=== PATIENT | female | born 1995 | race Caucasian/White ===

== ENCOUNTER 2020-07-01 12:35 | Inpatient (IN) ==
[2020-07-01] MEDS ORDERED: Naloxone 0.4 MG/ML INJ IVP PRN (13:12)
[2020-07-01] MEDS ORDERED: miSOPROStoL 25 MCG TABLET PO PRN (13:12)
[2020-07-01] MEDS ORDERED: Metoclopramide 10 MG/2 ML VIAL IVP PRN (13:12)
[2020-07-01] MEDS ORDERED: Ondansetron 4 MG/2 ML VIAL IVP PRN (13:12)
[2020-07-01] MEDS ORDERED: Azithromycin 500 MG in 0.9 % Sodium Chloride 250 ML IVPB PRN (13:12)
[2020-07-01] MEDS ORDERED: Famotidine 20 MG/2 ML VIAL IVP PRN (13:12)
[2020-07-01] MEDS ORDERED: *HR* Nalbuphine 10 MG/ML AMPUL IV PRN (13:12)
[2020-07-01] MEDS ORDERED: Oxytocin 20 units/ LR 1000 mL 20 UNIT/1,000 ML BAG IVC SCH (13:15)
[2020-07-01 14:03] LABS: Amphetamine Screen,Urine Negative ng/mL (Cutoff=1000); Barbiturate Screen,Urine Negative ng/mL (Cutoff=200); Benzodiazepines Screen,Urine Negative ng/mL (Cutoff=200); Cannabinoid Screen,Urine Negative ng/mL (Cutoff = 50); Cocaine Screen,Urine Negative ng/mL (Cutoff= 300); Opiate Screen,Urine Negative ng/mL (Cutoff=300); Phencyclidine Screen,Urine Negative ng/mL (Cutoff=25)
[2020-07-01 14:05] LABS: Basophils % 0.2 %; Eosinophils # 0.1 K/mcL (0.0-0.6); Eosinophils % 0.5 %; Hemoglobin 14.2 g/dL (11.5-15.4); Immature Granulocytes % 0.9 % (0-4); Lymphocytes # 1.6 K/mcL (0.6-4.6); Lymphocytes % 10.5 %; Mean Corpuscular HGB Conc 34.6 g/dL (31.6-35.5); Mean Corpuscular Hemoglobin 32.5 pg (28.0-33.3); Mean Corpuscular Volume 93.8 fL (83.0-100.0); Monocytes # 0.6 K/mcL (0.0-1.3); Monocytes % 4.3 %; Neutrophils # 12.5 K/mcL (1.6-8.9); Platelet Count 162 K/mcL (140-400); Red Blood Count 4.37 M/mcL (3.82-4.97); Red Cell Distribution Width 12.4 % (11.5-14.5); Segmented Neutrophils % 83.6 %; White Blood Count 14.9 K/mcL (4.3-11.1)
[2020-07-01 14:11] LABS: Influenza A PCR Negative (Negative); Influenza B PCR Negative (Negative); Resp. Syncytial Virus PCR Negative (Negative); SARS-CoV-2 by PCR (In House) Negative (Negative)
[2020-07-01] MEDS ORDERED: *HR* FentaNYL (PF) 100 MCG/2 ML VIAL EP ONE (17:03)
[2020-07-01] MEDS ORDERED: Ropivacaine/PF 0.2% 20 ML VIAL EP ONE (17:03)
[2020-07-01] MEDS ORDERED: EPHEDrine 50 MG/ML VIAL IVP PRN (17:03)
[2020-07-01] MEDS: Ringers Solution, Lactated 1,000 ML IVC SCH (19:25)
[2020-07-01] MEDS ORDERED: Ropivacaine/PF 0.2% 20 ML VIAL ONE (19:40)
[2020-07-01] MEDS ORDERED: *HR* FentaNYL (PF) 100 MCG/2 ML VIAL ONE (19:40)
[2020-07-01] MEDS: Epidural Premix (fent/bupiv) 110 ML EP SCH (20:00)
[2020-07-02] MEDS: Epidural Premix (fent/bupiv) 110 ML EP SCH (02:38)
[2020-07-02] MEDS: Ringers Solution, Lactated 1,000 ML IVC SCH ×2 (02:40→19:42)
[2020-07-02] MEDS ORDERED: Ropivacaine/PF 0.2% 20 ML VIAL ONE (08:59)
[2020-07-02] MEDS ORDERED: *HR* FentaNYL (PF) 100 MCG/2 ML VIAL ONE (08:59)
[2020-07-02] MEDS ORDERED: Lidocaine 1% 20 ML MDV ONE (15:14)
[2020-07-02] MEDS ORDERED: Lanolin 7 G OINT...G. TP PRN (16:04)
[2020-07-02] MEDS ORDERED: Measles/Mumps/Rubella Vacc 0.5 ML VIAL SQ PRN (16:04)
[2020-07-02] MEDS ORDERED: Benzocaine/Menthol 56 GM AEROSOL SPRAY TP PRN (16:04)
[2020-07-02] MEDS: Ibuprofen 600 MG TABLET PO PRN (16:33)
[2020-07-02] MEDS: Oxytocin 20 units/ LR 1000 mL 20 UNIT/1,000 ML BAG IVC SCH (19:41)
[2020-07-02] MEDS: Acetaminophen 325 MG TABLET PO PRN (20:42)
[2020-07-03] MEDS: Ibuprofen 600 MG TABLET PO PRN ×2 (01:22→08:17)
[2020-07-03] MEDS: *HR* HYDROcodone/Acet 5/325 mg TABLET PO PRN ×2 (01:46→10:16)
[2020-07-03 04:41] LABS: Basophils % 0.1 %; Eosinophils # 0.2 K/mcL (0.0-0.6); Eosinophils % 0.7 %; Hematocrit 34.9 % (35.3-44.9); Immature Granulocytes % 0.8 % (0-4); Lymphocytes # 1.7 K/mcL (0.6-4.6); Lymphocytes % 7.4 %; Mean Corpuscular HGB Conc 33.5 g/dL (31.6-35.5); Mean Corpuscular Hemoglobin 32.1 pg (28.0-33.3); Mean Corpuscular Volume 95.6 fL (83.0-100.0); Mean Platelet Volume 11.9 fL (9.4-12.4); Monocytes # 1.2 K/mcL (0.0-1.3); Monocytes % 5.3 %; Neutrophils # 19.4 K/mcL (1.6-8.9); Platelet Count 148 K/mcL (140-400); Red Blood Count 3.65 M/mcL (3.82-4.97); Red Cell Distribution Width 12.8 % (11.5-14.5); Segmented Neutrophils % 85.7 %
[2020-07-03 04:42] LABS: Hemoglobin 11.7 g/dL (11.5-15.4); White Blood Count 22.6 K/mcL (4.3-11.1)
[2020-07-03] MEDS: Oxytocin 20 units/ LR 1000 mL 20 UNIT/1,000 ML BAG IVC SCH (06:20)
[2020-07-03] MEDS: Acetaminophen 325 MG TABLET PO PRN (06:22)
[2020-07-03 06:50] VITALS: BP 108/70
[2020-07-03] MEDS ORDERED: Prenatal Vit/FA 1 EACH TABLET PO SCH (09:00)
== END 2020-07-03 16:52 | disposition home or self-care (01) | DRG 807 ==
LOC: 1NENULAB → 1NENUOBS 07-02 17:31
PROVIDERS: ADMIT Advanced Practice Midwife; ATTEND Advanced Practice Midwife